=== PATIENT | male | born 1960 | race African-American/Black ===

== ENCOUNTER 2016-08-31 10:14 | Emergency (ER) | payer MEDICAID, OTHER ==
[~2016-08-31] VITALS: Ht 172.7 cm; Wt 74.0 kg
[2016-08-31] MEDS ORDERED: AMLO2.5T45 PO (10:24)
[2016-08-31] MEDS ORDERED: ASPI-986 PO (10:24)
[2016-08-31] MEDS ORDERED: IBUPROFEN 600MG TABLET PO ONE (11:00)
[2016-08-31 11:51] VITALS: BP 138/81
== END 2016-08-31 11:53 | disposition home or self-care (01) ==
LOC: ER 10:41
DX: S00.03XA Contusion of scalp, initial encounter (principal); S09.90XA Unspecified injury of head, initial encounter; Z98.890 Other specified postprocedural states; Y00.XXXA Assault by blunt object, initial encounter; Y93.89 Activity, other specified; Y92.018 Other place in single-family (private) house as the place of occurrence of the external cause
CPT/HCPCS: 99283; Z7610

== ENCOUNTER 2019-02-04 11:17 | Emergency (ER) | payer MEDICAID ==
[~2019-02-04] VITALS: Ht 177.8 cm; Wt 90.0 kg
[~2019-02-04 11:17] MED LIST: AMLO2.5T45 PO; ASPI-986 PO
[2019-02-04 11:30] VITALS: BP 185/106
[2019-02-04] MEDS ORDERED: LORAZEPAM 2MG/ML CPJ IV STA (11:31)
[2019-02-04] MEDS ORDERED: SODIUM CHLORIDE 0.9% 1,000 ML IV ONE (11:31)
[2019-02-04 11:58] LABS: BASOPHILS % 0.3 % (0.0-2.0); EOSINOPHILS % 0.2 % (0.0-5.0); HEMATOCRIT. 51.2 % (42.0-52.0); HEMOGLOBIN. 17.4 g/dL (14.0-18.0); LYMPHOCYTES % 14.1 % (20.0-50.0); MEAN CORPUSCULAR HEMOGLOBIN 27.3 pg (28.0-32.0); MEAN CORPUSCULAR VOLUME 80.2 fL (80.0-94.0); MONOCYTES % 5.8 % (2.0-8.0); NEUTROPHILS % 79.6 % (40.0-76.0); PLATELET 225 x1000/uL (130-400); RED BLOOD CELL COUNT 6.38 mill/uL (4.7-6.1); RED CELL DISTRIBUTION WIDTH 13.8 % (11.6-14.6)
[2019-02-04 12:06] LABS: CHLORIDE 108 mEq/L (98-107)
[2019-02-04 12:10] LABS: ETHANOL BLOOD 34 mg/dL
[2019-02-04 12:18] LABS: CLARITY URINE CLEAR (CLEAR); COLOR URINE YELLOW (YELLOW); KETONES URINE NEGATIVE (NEGATIVE); LEUKOCYTE ESTERASE URINE NEGATIVE (NEGATIVE); NITRITE URINE NEGATIVE (NEGATIVE); OCCULT BLOOD URINE 1+ (NEGATIVE); PROTEIN URINE 2+ (NEGATIVE); SPECIFIC GRAVITY URINE 1.009 (1.005-1.030); UROBILINOGEN URINE 0.2 E.U./dL (0.2-1.0)
[2019-02-04 12:28] LABS: *AMPHETAMINES SCREEN URINE NEGATIVE (NEGATIVE); *BARBITURATES SCREEN URINE NEGATIVE (NEGATIVE); *BENZODIAZEPINES SCREEN URINE NEGATIVE (NEGATIVE); *COCAINE SCREEN URINE PRESUMTIVE POSITIVE (NEGATIVE); METHADONE URINE SCREEN NEGATIVE (NEGATIVE); OPIATES URINE SCREEN NEGATIVE (NEGATIVE); PHENCYCLIDINE URINE SCREEN PRESUMTIVE POSITIVE (NEGATIVE)
[2019-02-04 12:29] LABS: CANNABINOID URINE SCREEN NEGATIVE (NEGATIVE)
== END 2019-02-04 12:30 | disposition home or self-care (01) ==
LOC: ER 11:38
DX: T40.991A Poisoning by other psychodysleptics [hallucinogens], accidental (unintentional), initial encounter (principal); T40.5X1A Poisoning by cocaine, accidental (unintentional), initial encounter; Y92.9 Unspecified place or not applicable; I10 Essential (primary) hypertension; Z79.82 Long term (current) use of aspirin
CPT/HCPCS: 36415; 80053; 80305; 80307; 80320; 80329; 81003; 85025; 93005; 96374; 99283; J2060; J7030; G0480

== ENCOUNTER 2019-10-08 20:25 | Emergency (ER) | payer MEDICAID ==
[~2019-10-08] VITALS: Ht 177.8 cm; Wt 82.0 kg
[2019-10-08 21:24] LABS: BASOPHILS % 0.5 % (0.0-2.0); EOSINOPHILS % 2.5 % (0.0-5.0); HEMATOCRIT. 45.9 % (42.0-52.0); HEMOGLOBIN. 15.6 g/dL (14.0-18.0); LYMPHOCYTES % 26.5 % (20.0-50.0); MEAN CORPUSCULAR HEMOGLOBIN 27.5 pg (28.0-32.0); MEAN CORPUSCULAR VOLUME 81.2 fL (80.0-94.0); MEAN PLATELET VOLUME 8.3 fl (7.4-10.4); MONOCYTES % 9.6 % (2.0-8.0); NEUTROPHILS % 60.9 % (40.0-76.0); PLATELET 217 x1000/uL (130-400); RED BLOOD CELL COUNT 5.66 mill/uL (4.7-6.1); RED CELL DISTRIBUTION WIDTH 13.5 % (11.6-14.6)
[2019-10-08 21:28] LABS: CHLORIDE 107 mEq/L (98-107)
[2019-10-08 21:43] LABS: CLARITY URINE CLEAR (CLEAR); COLOR URINE YELLOW (YELLOW); KETONES URINE NEGATIVE (NEGATIVE); LEUKOCYTE ESTERASE URINE NEGATIVE (NEGATIVE); NITRITE URINE NEGATIVE (NEGATIVE); OCCULT BLOOD URINE NEGATIVE (NEGATIVE); PH URINE 6.5 (4.5-8.0); PROTEIN URINE NEGATIVE (NEGATIVE); SPECIFIC GRAVITY URINE 1.011 (1.005-1.030); UROBILINOGEN URINE 0.2 E.U./dL (0.2-1.0)
[2019-10-08 21:54] LABS: *AMPHETAMINES SCREEN URINE NEGATIVE (NEGATIVE); *BARBITURATES SCREEN URINE NEGATIVE (NEGATIVE); *BENZODIAZEPINES SCREEN URINE NEGATIVE (NEGATIVE); *COCAINE SCREEN URINE PRESUMTIVE POSITIVE (NEGATIVE)
[2019-10-08 21:55] LABS: CANNABINOID URINE SCREEN NEGATIVE (NEGATIVE); METHADONE URINE SCREEN NEGATIVE (NEGATIVE); OPIATES URINE SCREEN NEGATIVE (NEGATIVE); PHENCYCLIDINE URINE SCREEN PRESUMTIVE POSITIVE (NEGATIVE)
[2019-10-09 00:47] VITALS: BP 140/90
== END 2019-10-09 00:47 | disposition home or self-care (01) ==
LOC: ER 20:25
DX: F14.129 Cocaine abuse with intoxication, unspecified (principal); F16.129 Hallucinogen abuse with intoxication, unspecified; R20.2 Paresthesia of skin; F20.9 Schizophrenia, unspecified; I10 Essential (primary) hypertension; Z86.73 Personal history of transient ischemic attack (TIA), and cerebral infarction without residual deficits; Z79.82 Long term (current) use of aspirin
CPT/HCPCS: 36415; 71045; 80053; 80305; 81003; 83880; 84484; 85025; 93005; 99285

== ENCOUNTER 2020-03-18 20:43 | Emergency (ER) | payer MEDICAID ==
[~2020-03-18] VITALS: Ht 182.9 cm; Wt 100.0 kg
[2020-03-18] MEDS ORDERED: SODIUM CHLORIDE 0.9% 1,000 ML IV ONE (21:00)
[2020-03-18 21:35] LABS: CHLORIDE 106 mEq/L (98-107)
[2020-03-18 21:38] LABS: BASOPHILS % 0.5 % (0.0-2.0); EOSINOPHILS % 0.2 % (0.0-5.0); HEMATOCRIT. 48.6 % (42.0-52.0); HEMOGLOBIN. 16.7 g/dL (14.0-18.0); LYMPHOCYTES % 14.3 % (20.0-50.0); MEAN CORPUSCULAR HEMOGLOBIN 27.7 pg (28.0-32.0); MEAN CORPUSCULAR VOLUME 80.3 fL (80.0-94.0); MEAN PLATELET VOLUME 8.6 fl (7.4-10.4); MONOCYTES % 6.4 % (2.0-8.0); NEUTROPHILS % 78.6 % (40.0-76.0); PLATELET 193 x1000/uL (130-400); RED BLOOD CELL COUNT 6.05 mill/uL (4.7-6.1); RED CELL DISTRIBUTION WIDTH 13.8 % (11.6-14.6)
[2020-03-19] MEDS ORDERED: VISCOUS LIDOCAINE 2% 15 ML UDC MM STA (01:21)
[2020-03-19 16:30] VITALS: BP 125/71
== END 2020-03-19 16:45 | disposition left against medical advice (07) ==
LOC: ER 20:43
DX: G40.909 Epilepsy, unspecified, not intractable, without status epilepticus (principal); F20.9 Schizophrenia, unspecified; I10 Essential (primary) hypertension; F14.10 Cocaine abuse, uncomplicated; F16.10 Hallucinogen abuse, uncomplicated; F19.10 Other psychoactive substance abuse, uncomplicated; F17.200 Nicotine dependence, unspecified, uncomplicated; Z86.73 Personal history of transient ischemic attack (TIA), and cerebral infarction without residual deficits; Z53.29 Procedure and treatment not carried out because of patient's decision for other reasons; Z79.899 Other long term (current) drug therapy
CPT/HCPCS: 36415; 70450; 71045; 73130; 80053; 82962; 83605; 83880; 84484; 85025; 87040; 87086; 93005; 96360; 96361; 99285; J7030

== ENCOUNTER 2020-07-21 14:36 | Emergency (ER) | payer MEDICAID ==
[~2020-07-21] VITALS: Ht 177.8 cm; Wt 91.0 kg
[2020-07-21 15:33] LABS: BASOPHILS % 0.5 % (0.0-2.0); EOSINOPHILS % 1.2 % (0.0-5.0); HEMATOCRIT. 49.7 % (42.0-52.0); HEMOGLOBIN. 17.2 g/dL (14.0-18.0); LYMPHOCYTES % 9.2 % (20.0-50.0); MEAN CORPUSCULAR HEMOGLOBIN 27.9 pg (28.0-32.0); MEAN CORPUSCULAR VOLUME 80.6 fL (80.0-94.0); MEAN PLATELET VOLUME 7.8 fl (7.4-10.4); MONOCYTES % 5.4 % (2.0-8.0); NEUTROPHILS % 83.7 % (40.0-76.0); PLATELET 252 x1000/uL (130-400); RED BLOOD CELL COUNT 6.17 mill/uL (4.7-6.1)
[2020-07-21 15:40] LABS: CHLORIDE 114 mEq/L (98-107)
[2020-07-21 15:44] LABS: ETHANOL BLOOD < 10 mg/dL
[2020-07-21 15:55] VITALS: BP 121/66
== END 2020-07-21 15:58 | disposition home or self-care (01) ==
LOC: ER 14:47
DX: T40.991A Poisoning by other psychodysleptics [hallucinogens], accidental (unintentional), initial encounter (principal); R00.0 Tachycardia, unspecified; F14.10 Cocaine abuse, uncomplicated; Z79.899 Other long term (current) drug therapy; Y92.89 Other specified places as the place of occurrence of the external cause
CPT/HCPCS: 36415; 80053; 80307; 80320; 80329; 85025; 93005; 99284; G0480

== ENCOUNTER 2020-12-07 02:16 | Emergency (ER) | payer MEDICAID ==
[~2020-12-07] VITALS: Ht 167.6 cm; Wt 73.0 kg
[2020-12-07] MEDS ORDERED: ACETAMINOPHEN WITH CODEINE 300/30MG TABLET PO ONE (03:00)
[2020-12-07] MEDS ORDERED: LIDOCAINE 5% PATCH TOP SCH (03:30)
[2020-12-07 04:50] VITALS: BP 142/85
[2020-12-07] MEDS ORDERED: HYDR-4001 MT (05:16)
== END 2020-12-07 05:34 | disposition home or self-care (01) ==
LOC: ER 02:16
DX: S22.31XA Fracture of one rib, right side, initial encounter for closed fracture (principal); R00.0 Tachycardia, unspecified; W10.8XXA Fall (on) (from) other stairs and steps, initial encounter; Y93.01 Activity, walking, marching and hiking; Y92.89 Other specified places as the place of occurrence of the external cause; F14.90 Cocaine use, unspecified, uncomplicated; F16.90 Hallucinogen use, unspecified, uncomplicated
CPT/HCPCS: 71101; 99283

== ENCOUNTER 2021-03-05 19:04 | Emergency (ER) | payer MEDICAID ==
[~2021-03-05] VITALS: Ht 185.4 cm; Wt 96.0 kg
[~2021-03-05 19:04] MED LIST changes: +HYDR-4001 MT
[2021-03-05 19:11] VITALS: BP 136/90
[2021-03-05] MEDS ORDERED: ACETAMINOPHEN 325MG TABLET PO ONE (19:30)
== END 2021-03-05 19:58 | disposition left against medical advice (07) ==
LOC: ER 19:04
DX: R07.89 Other chest pain (principal); F14.10 Cocaine abuse, uncomplicated; F16.10 Hallucinogen abuse, uncomplicated; Z79.82 Long term (current) use of aspirin
CPT/HCPCS: 93005; 99283

== ENCOUNTER 2021-04-15 14:57 | Emergency (ER) | payer MEDICAID ==
[~2021-04-15] VITALS: Ht 177.8 cm; Wt 85.0 kg
[2021-04-15 15:07] VITALS: BP 141/79
== END 2021-04-15 16:30 | disposition left against medical advice (07) ==
LOC: ER 14:57
DX: F14.90 Cocaine use, unspecified, uncomplicated (principal); R00.2 Palpitations; F16.129 Hallucinogen abuse with intoxication, unspecified
CPT/HCPCS: 93005; 99283; C1725